=== PATIENT | male | born 1995 | race Hispanic/Latino ===

== ENCOUNTER 2020-03-22 03:29 | Emergency (ER) | payer BC, OTHER | END 2020-03-22 03:59 | disposition home or self-care (01) | LOC: EDH 03:29 | DX: Z02.83 Encounter for blood-alcohol and blood-drug test (principal) ==

== ENCOUNTER 2020-09-15 22:20 | Emergency (ER) | payer OTHER ==
[2020-09-15] MEDS ORDERED: IBUPROFEN 600 MG TABLET ONE (23:13)
[2020-09-15 23:58] LABS: RAPID GROUP A STREP NEGATIVE (NEGATIVE)
[2020-09-16] MEDS ORDERED: CETIRIZINE HCL 5 MG TABLET PO ONE (00:10)
== END 2020-09-16 02:11 | disposition home or self-care (01) ==
LOC: EDH 22:20
DX: J30.9 Allergic rhinitis, unspecified (principal); Z20.822 Contact with and (suspected) exposure to COVID-19
CPT/HCPCS: 87426; 87804 ×2; 87880; 99283; U0003

== ENCOUNTER 2021-01-29 22:17 | Emergency (ER) | payer OTHER ==
[~2021-01-29] VITALS: Ht 165.1 cm; Wt 68.0 kg
[2021-01-29] MEDS ORDERED: TETANUS/DIPHTHERIA TOXOID [ADULT] 0.5 ML VIAL IM ONE (22:30)
[2021-01-29 23:19] VITALS: BP 110/65
== END 2021-01-29 23:19 | disposition home or self-care (01) ==
LOC: EDH 22:17
DX: S70.312A Abrasion, left thigh, initial encounter (principal); X58.XXXA Exposure to other specified factors, initial encounter; Y93.89 Activity, other specified; Y92.89 Other specified places as the place of occurrence of the external cause; Y99.8 Other external cause status
CPT/HCPCS: 90471; 90714